=== PATIENT | female | born 1980 | race Two or more races ===

== ENCOUNTER 2019-05-13 21:25 | Emergency (ER) | payer SELFPAY ==
[~2019-05-13] VITALS: Ht 157.5 cm; Wt 122.5 kg
[2019-05-13 21:28] VITALS: BP 173/107
[2019-05-13] MEDS ORDERED: HYDROCODONE/APAP 10/325MG 1 EA TABLET ONE (21:55)
[2019-05-13] MEDS ORDERED: ONDANSETRON 4 MG TAB.RAPDIS ONE ×2 (21:55→22:22)
[2019-05-13] MEDS ORDERED: ONDANSETRON 4 MG TAB.RAPDIS SL ONE ×2 (22:00→22:30)
[2019-05-13] MEDS ORDERED: HYDROCODONE/APAP 10/325MG 1 EA TABLET PO ONE (22:00)
[2019-05-13] MEDS ORDERED: MORPHINE SULFATE INJ 2 MG/ML DISP.SYRIN ONE (22:22)
[2019-05-13] MEDS ORDERED: MORPHINE SULFATE INJ 2 MG/ML DISP.SYRIN IM ONE (22:30)
== END 2019-05-13 23:10 | disposition home or self-care (01) ==
LOC: ER 21:26
DX: M25.562 Pain in left knee (principal); M79.7 Fibromyalgia; M06.9 Rheumatoid arthritis, unspecified; Z60.2 Problems related to living alone; W01.0XXA Fall on same level from slipping, tripping and stumbling without subsequent striking against object, initial encounter; Y93.89 Activity, other specified; Y92.89 Other specified places as the place of occurrence of the external cause; Y99.8 Other external cause status
CPT/HCPCS: 29505; 73564; 96372; 99284; J2270; Q0162 ×2